=== PATIENT | female | born 1995 | race African-American/Black ===

== ENCOUNTER 2017-07-28 03:44 | Emergency (ER) | payer OTHER, SELFPAY ==
[2017-07-28] MEDS ORDERED: Ketorolac 30 MG/ML SDV IVPUSH ONE (04:15)
[2017-07-28] MEDS ORDERED: Sodium Chloride 0.9% 10 ML Syringe FLUSH PRN (04:15)
[2017-07-28] MEDS ORDERED: Sodium Chloride 0.9% 2.5 ML Syringe FLUSH PRN (04:15)
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
[2017-07-28 04:56] LABS: CHLORIDE,CL 108 mmol/L (98-110); SODIUM,NA 142 mmol/L (136-146)
[2017-07-28] MEDS ORDERED: Acetaminophen/HYDROcodone 325-7.5 MG Tab PO ONE (05:43)
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
== END 2017-07-28 06:45 | disposition home or self-care (01) ==
LOC: MW.ED 03:44
DX: S02.2XXA Fracture of nasal bones, initial encounter for closed fracture (principal); S92.001A Unspecified fracture of right calcaneus, initial encounter for closed fracture; F17.210 Nicotine dependence, cigarettes, uncomplicated; Y04.2XXA Assault by strike against or bumped into by another person, initial encounter
CPT/HCPCS: 70450; 70486; 73562; 73610; 80053; 81001; 81025; 85025; 96374; 99284; A9270; G0480; J1885; 99283

== ENCOUNTER 2017-09-17 11:11 | Emergency (ER) | payer OTHER ==
--- NOTE | 2017-09-17 11:44 | EDM.PDOC ---
ED HPI GENERAL MEDICAL PROBLEM - General Chief Complaint: Lower Extremity Injury/Pain Stated Complaint: R FOOT PAIN Time Seen by Provider: 09/17/17 11:14 - History of Present Illness INITIAL COMMENTS - FREE TEXT/NARRATIVE: HISTORY AND PHYSICAL: History of present illness: The patient is a 21-year-old female who I saw in July after she sustained a trauma where she had a mildly displaced comminuted impacted calcaneal fracture of her right foot and she was followed up in orthopedics clinic. Patient said that she could not afford surgery and did not have any insurance coverage and was going to manage it symptomatically and she had an injury where she fell last month and was seen by our liquid flavor compounder Dr. Melendez and referred to a floral department specialist in [place]. She had a soft cast placed and a boot applied and she said she did follow up with that doctor at [facility] and [place] and because of the cost of that appointment she was unable to see him. Since that time she has not followed up with orthopedics or podiatry. She presents today after she had a simple fall where she generally twisted her foot and ankle and she is concerned about new pain in the same region of her foot and ankle. She did not hit her head or pass out and has no head neck or back pain no proximal leg knee thigh or hip pain on the right and just increased persistent pain on the right lateral ankle and foot. Patient denies any systemic complaints. Review of systems: As per history of present illness and below otherwise all systems reviewed and negative. Past medical history: As per history of present illness and as reviewed below otherwise noncontributory. Surgical history: As per history of present illness and as reviewed below otherwise noncontributory. Social history: No reported history of drug or alcohol abuse. Family history: As per history of present illness and as reviewed below otherwise noncontributory. Physical exam: Gen.: Well-developed well-nourished female who is nontoxic and speaking clearly in the ED. Vital signs noted by me HEENT: Atraumatic, normocephalic, negative for conjunctival pallor or scleral icterus, mucous membranes moist, throat clear, neck supple, nontender, trachea midline. Lungs: Clear to auscultation, breath sounds equal bilaterally, chest nontender. Heart: S1S2, regular rate and rhythm no overt murmurs Abdomen: Soft, nondistended, nontender. NABS Pelvis: Deferred Genitourinary: Deferred. Rectal: Deferred. Extremities: Atraumatic with full range of motion with the exception of the right ankle and foot where there is a soft cast in place which was removed by myself and nursing staff. There is diffuse soft tissue swelling of the ankle and foot which does not appear acutely new and has no neurovascular changes. There is tenderness at the lateral ankle and the lateral foot without crepitus. The remainder of the right lower extremity is without defects or deformities including the hip and thigh knee tib-fib and medial ankle. The legs are, negative for cords or calf pain. Neurovascular unremarkable. Neuro: Awake, alert, oriented. Cranial nerves II through XII unremarkable. Cerebellum unremarkable. Motor and sensory unremarkable throughout. Exam nonfocal. Diagnostics: X-ray right ankle and foot Therapeutics: Ice pack 1212: Case was discussed with Dr. Melendez our liquid flavor compounder who saw the patient last month. She says that the soft cast that she applied was only supposed to stay on for a week and that she was surprised that it was still in place and thankful that we removed it. She said that she does not need to see the patient in her clinic as she has nothing to offer her but she will reach out to the doctor in [place] that she spoke with and was very clear about the patient's financial restrictions and try to see if he will at least see this patient in consultation for an office visit. She tells me that the patient was working with social worker assistant to try to get financial ability to afford the surgery as the patient told nursing but there is some issues with her citizenship which may preclude some of those options. Patient was made aware of these conversations. Dr. Melendez suggests an ortho boot and crutches and no weightbearing. Dr. Melendez said that she will try to recontact the doctor in [place] to see what can be done and the patient was made aware of that. I will give the patient some more [place] for pain and stress follow-up with that doctor in [place] when she can get the financial ability to do so Impression: Right foot and ankle pain acute on chronic with history of complicated calcaneal fracture with nontreatment Definitive disposition and diagnosis as appropriate pending reevaluation and review of above. Right Foot Pain Score (Numeric/FACES): 8 - Related Data Allergies Allergy/AdvReac Type Severity Reaction Status Date / Time No Known Allergies Allergy Verified 09/17/17 11:26 Home Meds: Home Meds . [No Known Home Meds] 07/28/17 [History] Past Medical History - Past Health History Medical/Surgical History: Denies Medical/Surgical History Psychiatric History: Reports: Bipolar Social & Family History - Family History Family Medical History: Noncontributory - Tobacco Use Smoking Status *Q: Current Every Day Smoker Years of Tobacco use: 1 Packs/Tins Daily: 1 - Recreational Drug Use Recreational Drug Use: No Review of Systems - Review of Systems Review Of Systems: ROS reveals no pertinent complaints other than HPI. ED EXAM, GENERAL - Physical Exam Exam: See Below (See dictation) Course - Vital Signs Last Recorded V/S: Last Vital Signs Temp 36.3 C 09/17/17 11:26 Pulse 82 09/17/17 11:26 Resp 18 09/17/17 11:26 BP 114/72 09/17/17 11:26 Pulse Ox 98 09/17/17 11:26 - Orders/Labs/Meds Orders: Active Orders 24 hr Category Date Time Status DME for Discharge [COMM] Stat Oth 09/17/17 12:34 Ordered Departure - Departure Time of Disposition: 12:36 Disposition: Home, Self-Care 01 Condition: Good Clinical Impression: Right foot injury, Right ankle injury, Closed fracture of right calcaneus with delayed healing - Discharge Information Referrals: PCP,None [Primary Care Provider] - Forms: ED Department Discharge Additional Instructions: The following information is given to patients seen in the emergency department who are being discharged to home. This information is to outline your options for follow-up care. We provide all patients seen in our emergency department with a follow-up referral. The need for follow-up, as well as the timing and circumstances, are variable depending upon the specifics of your emergency department visit. If you don't have a primary care physician on staff, we will provide you with a referral. We always advise you to contact your personal physician following an emergency department visit to inform them of the circumstance of the visit and for follow-up with them and/or the need for any referrals to a consulting specialist. The emergency department will also refer you to a specialist when appropriate. This referral assures that you have the opportunity for followup care with a specialist. All of these measure are taken in an effort to provide you with optimal care, which includes your followup. Under all circumstances we always encourage you to contact your private physician who remains a resource for coordinating your care. When calling for followup care, please make the office aware that this follow-up is from your recent emergency room visit. If for any reason you are refused follow-up, please contact the [facility] emergency department at and ask to speak to the emergency department charge nurse. [facility] Primary care- Internal Medicine and [facility] [address] [place] [id number] [facility] Specialty clinic- Podiatry [address] [place] [phone] Fax: [phone] Ice and elevate the area and wear the orthopedic boot at all times removing only at sleep times. Do not weight-bear and continue to use crutches. Please attempt to recontact and see the specialist in [place] that Dr. Leon referred you to and follow-up in her clinic if you're unable to see that doctor. Use over -the-counter ibuprofen or Tylenol for pain or stronger pain medications at night that you've been prescribed today. ER as needed and as discussed - My Orders Last 24 Hours: My Active Orders 09/17/17 12:34 DME for Discharge [COMM] Stat - Assessment/Plan Last 24 Hours: My Active Orders 09/17/17 12:34 DME for Discharge [COMM] Stat
--- NOTE | 2017-09-17 12:31 | CR ---
EXAMINATION: Right foot and right ankle HISTORY: Pain COMPARISON: 07/29/2017 TECHNIQUE: 3 views of the right ankle and 2 views of the right foot FINDINGS: There is moderate soft tissue swelling overlying the lateral malleolus. Again noted is a co mplex calcaneal fracture similar in position and alignment to the prior imaging. Healing changes are demonstrated. Ankle mortise and talar dome appear intact. No no new fracture or acute osseous abnormalities noted. Bone mineralization is otherwise normal. IMPRESSION: 1. Healing calcaneal fracture, unchanged. 2. Persistent soft tissue swelling overlying the lateral malleolus.
== END 2017-09-17 13:01 | disposition home or self-care (01) ==
LOC: MW.ED 11:11
DX: S92.001G Unspecified fracture of right calcaneus, subsequent encounter for fracture with delayed healing (principal); F17.210 Nicotine dependence, cigarettes, uncomplicated; X58.XXXD Exposure to other specified factors, subsequent encounter
CPT/HCPCS: 73610-26-RT; 73610-RT; 73620-26-RT; 73620-RT; 99283; 99284

== ENCOUNTER 2017-10-06 19:43 | Emergency (ER) | payer OTHER, SELFPAY ==
--- NOTE | 2017-10-06 19:56 | EDM.PDOC ---
ED HPI GENERAL MEDICAL PROBLEM - General Chief Complaint: General Stated Complaint: MEDICAL CLEARANCE Time Seen by Provider: 10/06/17 19:50 Source of Information: Reports: Patient History Limitations: Reports: No Limitations - History of Present Illness INITIAL COMMENTS - FREE TEXT/NARRATIVE: HISTORY AND PHYSICAL: History of present illness: Patient is a 21-year-old female who is brought to the emergency room by law enforcement for medical clearance. Patient is currently under arrest for assaulting another person and is here to be medically screened to be able to be incarcerated. Patient is alert and oriented. She offers no systemic complaints. Review of systems: As per history of present illness and below otherwise all systems reviewed and negative. Past medical history: As per history of present illness and as reviewed below otherwise noncontributory. Surgical history: As per history of present illness and as reviewed below otherwise noncontributory. Social history: No reported history of drug or alcohol abuse. Family history: As per history of present illness and as reviewed below otherwise noncontributory. Physical exam: Gen.: Well-developed and well-nourished 21-year-old -[place] female. Alert and oriented. Nontoxic appearing and in no acute distress. HEENT: Atraumatic, normocephalic, pupils reactive, negative for conjunctival pallor or scleral icterus, mucous membranes moist, throat clear, neck supple, nontender, trachea midline. Lungs: Clear to auscultation, breath sounds equal bilaterally, chest nontender. Heart: S1S2, regular rate and rhythm Abdomen: Soft, nondistended, nontender. Negative for masses or hepatosplenomegaly. Negative for costovertebral tenderness. Pelvis: Stable nontender. Genitourinary: Deferred. Rectal: Deferred. Extremities: Atraumatic, moves all extremities per self, wearing a cam-walker boot and using crutches (recent [place] fx), strong pedal pulses bilaterally. Neurovascular unremarkable. Neuro: Awake, alert, oriented. Cranial nerves II through XII unremarkable. Cerebellum unremarkable. Motor and sensory unremarkable throughout. Exam nonfocal. Vital signs were reviewed by me. Patient is alert and oriented. She moves all extremities per self. She offers no systemic complaints at this time. She is requesting to go home. Law Enforcement is with her at bedside. Patient is medically cleared to be discharged [] Therapeutics: [] Impression: Encounter for medical screening Plan: Please follow-up with your primary care provider in the next couple days. Return to the ED as needed and as discussed. Definitive disposition and diagnosis as appropriate pending reevaluation and review of above. Onset: Today - Related Data Allergies Allergy/AdvReac Type Severity Reaction Status Date / Time No Known Allergies Allergy Verified 10/06/17 19:52 Home Meds: Home Meds . [No Known Home Meds] 07/28/17 [History] Past Medical History - Past Health History Medical/Surgical History: Denies Medical/Surgical History Psychiatric History: Reports: Bipolar Social & Family History - Family History Family Medical History: Noncontributory - Tobacco Use Smoking Status *Q: Current Every Day Smoker Years of Tobacco use: 1 Packs/Tins Daily: 1 - Recreational Drug Use Recreational Drug Use: No ED ROS GENERAL - Review of Systems Review Of Systems: ROS reveals no pertinent complaints other than HPI. ED EXAM, GENERAL - Physical Exam Exam: See Below (See dictation) Departure - Departure Time of Disposition: 19:56 Disposition: Home, Self-Care 01 Clinical Impression: Encounter for medical screening examination - Discharge Information Referrals: PCP,None [Primary Care Provider] - Additional Instructions: My general discharge The following information is given to patients seen in the emergency department who are being discharged to home. This information is to outline your options for follow-up care. We provide all patients seen in our emergency department with a follow-up referral. The need for follow-up, as well as the timing and circumstances, are variable depending upon the specifics of your emergency department visit. If you don't have a primary care physician on staff, we will provide you with a referral. We always advise you to contact your personal physician following an emergency department visit to inform them of the circumstance of the visit and for follow-up with them and/or the need for any referrals to a consulting specialist. The emergency department will also refer you to a specialist when appropriate. This referral assures that you have the opportunity for follow-up care with a specialist. All of these measure are taken in an effort to provide you with optimal care, which includes your follow-up. Under all circumstances we always encourage you to contact your private physician who remains a resource for coordinating your care. When calling for follow-up care, please make the office aware that this follow-up is from your recent emergency room visit. If for any reason you are refused follow-up, please contact the [facility] Emergency Department at and asked to speak to the emergency department charge nurse. [facility] [address] [place] [phone] Please follow-up with your primary care provider in the next couple days. Return to the ED as needed and as discussed.
== END 2017-10-06 20:09 | disposition home or self-care (01) ==
LOC: MW.ED 19:43
DX: Z02.89 Encounter for other administrative examinations (principal); F17.210 Nicotine dependence, cigarettes, uncomplicated
CPT/HCPCS: 82962; 99282; 99283